=== PATIENT | female | born 1970 | race Caucasian/White ===

== ENCOUNTER 2017-01-06 03:26 | Observation (INO) | payer OTHER, MEDICAID ==
[2017-01-06] MEDS ORDERED: Sodium Chloride 0.9% 10 ML Syringe FLUSH PRN (03:37)
[2017-01-06] MEDS ORDERED: Sodium Chloride 0.9% 2.5 ML Syringe FLUSH PRN (03:37)
[2017-01-06] MEDS ORDERED: Sodium Chloride 0.9% 1,000 ML IV ONE (03:37)
[2017-01-06] MEDS ORDERED: Aspirin 81 MG Tab.Chew PO ONE (03:37)
--- NOTE | 2017-01-06 03:44 | EDM.PDOC ---
ED HPI GENERAL MEDICAL PROBLEM - General Chief Complaint: Chest Pain Stated Complaint: IRREGULAR HEARTBEAT Time Seen by Provider: 01/06/17 03:30 - History of Present Illness INITIAL COMMENTS - FREE TEXT/NARRATIVE: HISTORY AND PHYSICAL: History of present illness: The patient is a 46-year-old female who presents after awakening from sleep with a marie or like sensation in her anterior chest wall and palpitations and feeling like "she just ran a long race". This occurred at 2 AM, an hour and a half ago, and has improved. Patient says that the pain/pressure in her chest and bilateral and does go up to bilateral neck and left shoulder does not radiate down her arm or up into her jaw. It is not associated with shortness of breath diaphoresis nausea or vomiting. Patient says she had a normal day earlier without any upper respiratory symptoms chest pain abdominal pain she ate her normal meals. Patient has no significant history of cardiac pulmonary disease and she is adopted and really knows nothing about the health history of her biologic family. Patient does not smoke drink or do any drugs. Patient does have a history of anxiety in the past but has not taken medications for that in over 2 years. Patient does not recollect a caffeinated products. She has no leg pain or swelling and she did not take any medications prior to coming here. Patient ate normally earlier and has no history of food intolerance. She rates the pressure across her chest as a 4/10 currently. When asked if she is experiencing the palpitations she says that they have stopped. Patient tells me that she had a total hysterectomy in her 30s. Review of systems: As per history of present illness and below otherwise all systems reviewed and negative. Past medical history: As per history of present illness and as reviewed below otherwise noncontributory. Surgical history: As per history of present illness and as reviewed below otherwise noncontributory. Social history: No reported history of drug or alcohol abuse. Family history: As per history of present illness and as reviewed below otherwise noncontributory. Physical exam: Gen.: Well-developed well-nourished female who is nontoxic and speaking clearly and easily in the ED. Vital signs have been noted by me. HEENT: Atraumatic, normocephalic, negative for conjunctival pallor or scleral icterus, mucous membranes tacky, throat clear, neck supple, nontender, trachea midline. Lungs: Clear to auscultation, breath sounds equal bilaterally, chest nontender. No worker breathing or sensory muscle use stridor or wheezing Heart: S1S2, regular rate and rhythm no overt murmurs Abdomen: Soft, nondistended, nontender. Negative for masses or hepatosplenomegaly. NABS Pelvis: Deferred Genitourinary: Deferred. Rectal: Deferred. Extremities: Atraumatic, negative for cords or calf pain. Neurovascular unremarkable. No pedal edema or leg asymmetry Neuro: Awake, alert, oriented. Cranial nerves II through XII unremarkable. Cerebellum unremarkable. Motor and sensory unremarkable throughout. Exam nonfocal. Skin: No diaphoresis normal turgor no overt rashes or lesions grossly seen Diagnostics: EKG chest x-ray CBC CMP troponin INR and d-dimer Therapeutics: IV O2 monitor IV fluids nitroglycerin sublingual aspirin Nitropaste morphine After 3 sublingual nitroglycerin the chest discomfort/pressure is now at 2/10 and she says it is intermittent. We will place Nitropaste given a dose of morphine. We will continue to monitor the testing results. Patient states that her chest pressure has dissipated and it only occasionally resurfaces. We discussed, as well as the patient discussing with nursing, some increased stressors the patient has been experiencing lately and she thinks that anxiety may be resurfacing. She states she has an appointment tomorrow to see a physician about getting back on some medication for anxiety. I did discuss with her all testing results and the need for an observation admission. She is agreeable to do that Impression: Chest pain Definitive disposition and diagnosis as appropriate pending reevaluation and review of above. chest Pain Score (Numeric/FACES): 5 - Related Data Allergies Allergy/AdvReac Type Severity Reaction Status Date / Time levofloxacin [From Levaquin] Allergy Tachycardia Verified 01/06/17 03:30 Tetracyclines Allergy Hives Verified 01/06/17 03:30 Home Meds: Home Meds . 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: 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 History: Reports: Other (See Below) Other 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 History: hx: fracturing clavicle Neurological History: Reports: None Psychiatric History: Reports: Anxiety, Depression Endocrine/Metabolic History: Reports: None Hematologic History: Reports: None Immunologic History: Reports: None Oncologic (Cancer) History: Reports: None Dermatologic History: Reports: None - Infectious Disease History Infectious Disease History: Reports: Chicken Pox, Measles, Mumps Other Infectious Disease History: childhood - Past Surgical History Neurological Surgical History: Reports: Other (See Below) 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 Surgical History: Reports: Other (See Below) Social & Family History - Family History Family Medical History: Unobtainable Other HEENT Family History: Pt is adopted. - Tobacco Use Smoking Status *Q: Never Smoker Second Hand Smoke Exposure: No - Caffeine Use Caffeine Use: Reports: Coffee - Alcohol Use Days Per Week of Alcohol Use: 0 - Recreational Drug Use Recreational Drug Use: No Drug Use in Last 12 Months: No Recreational Drug Type: Reports: Cocaine ED ROS GENERAL - Review of Systems Review Of Systems: ROS reveals no pertinent complaints other than HPI. (See dictation) ED EXAM, GENERAL - Physical Exam Exam: See Below (See dictation) Course - Vital Signs Last Recorded V/S: Last Vital Signs Temp 36.6 C 01/06/17 03:26 Pulse 69 01/06/17 04:30 Resp 18 01/06/17 04:30 BP 110/67 01/06/17 04:30 Pulse Ox 96 01/06/17 04:30 - Orders/Labs/Meds Orders: Active Orders 24 hr Category Date Time Status Cardiac Monitoring [RC] . DIRECTED Care 01/06/17 03:37 Active Oxygen Therapy, ED [RC] ASDIRECTED Care 01/06/17 03:37 Active Pulse Oximetry [RC] ASDIRECTED Care 01/06/17 03:37 Active Chest 1V Frontal [CR] Stat Exams 01/06/17 03:37 Taken LORazepam [Ativan] Med 01/06/17 04:32 Once 1 mg PO ONETIME ONE Sodium Chloride 0.9% [Normal Saline] 1,000 ml Med 01/06/17 03:37 Active IV STAT Sodium Chloride 0.9% [Saline Flush] Med 01/06/17 03:37 Active 10 ml FLUSH ASDIRECTED PRN Sodium Chloride 0.9% [Saline Flush] Med 01/06/17 03:37 Active 2.5 ml FLUSH ASDIRECTED PRN Saline Lock Insert [OM.PC] Stat Oth 01/06/17 03:37 Ordered Medication Orders Sodium Chloride (Normal Saline) 1,000 mls @ 999 mls/hr IV STAT ONE Stop: 01/06/17 04:37 Last Admin: 01/06/17 03:49 Dose: 999 mls/hr Sodium Chloride (Saline Flush) 10 ml FLUSH ASDIRECTED PRN PRN Reason: Keep Vein Open Sodium Chloride (Saline Flush) 2.5 ml FLUSH ASDIRECTED PRN PRN Reason: Keep Vein Open Labs: Laboratory Tests 01/06/17 01/06/17 01/06/17 Range/Units 03:30 03:30 03:49 WBC 8.57 (4.0-11.0) K/uL RBC 5.08 (4.30-5.90) M/uL Hgb 15.7 (12.0-16.0) g/dL Hct 43.8 (36.0-46.0) % MCV 86.2 (80.0-98.0) fL MCH 30.9 (27.0-32.0) pg MCHC 35.8 (31.0-37.0) g/dL RDW Std Deviation 39.4 (28.0-62.0) fl RDW Coeff of Jose Luis 13 (11.0-15.0) % Plt Count 192 (150-400) K/uL MPV 9.70 (7.40-12.00) fL Neut % (Auto) 39.9 L (48.0-80.0) % Lymph % (Auto) 48.9 H (16.0-40.0) % [place] % (Auto) 6.8 (0.0-15.0) % Eos % (Auto) 3.9 (0.0-7.0) % Baso % (Auto) 0.5 (0.0-1.5) % Neut # (Auto) 3.4 (1.4-5.7) K/uL Lymph # (Auto) 4.2 H (0.6-2.4) K/uL [place] # (Auto) 0.6 (0.0-0.8) K/uL Eos # (Auto) 0.3 (0.0-0.7) K/uL Baso # (Auto) 0.0 (0.0-0.1) K/uL Nucleated RBC % 0.0 /100WBC Nucleated RBCs # 0 K/uL INR 0.98 (0.86-1.11) D-Dimer, Quantitative < 0.19 (0.0-0.52) mg/LFEU Sodium 139 (136-146) mmol/L Potassium 4.2 (3.5-5.1) mmol/L Chloride 109 (98-110) mmol/L Carbon Dioxide 19 L (21-31) mmol/L BUN 27 H (6.0-23.0) mg/dL Creatinine 0.9 (0.6-1.5) mg/dL Est Cr Clr Drug Dosing 63.24 mL/min Estimated GFR (MDRD) > 60.0 ml/min Glucose 102 (60-110) mg/dL Calcium 9.6 (8.8-10.8) mg/dL Total Bilirubin 0.4 (0.1-1.5) mg/dL AST 20 (5-40) IU/L ALT 16 (8-54) IU/L Alkaline Phosphatase 99 (40-150) Troponin I < 0.10 (0.0-0.29) NG/ML Total Protein 7.3 (6.0-8.0) g/dL Albumin 4.1 (3.5-5.0) g/dL Globulin 3.2 (2.0-3.5) g/dL Albumin/Globulin Ratio 1.3 (1.3-2.8) Meds: Medications Generic Name Dose Route Start Last Admin Trade Name Freq PRN Reason Stop Dose Admin Sodium Chloride 1,000 mls @ 999 mls/hr 01/06/17 03:37 01/06/17 03:49 Normal Saline IV 01/06/17 04:37 999 mls/hr STAT ONE Administration Sodium Chloride 10 ml 01/06/17 03:37 Saline Flush FLUSH ASDIRECTED PRN Keep Vein Open Sodium Chloride 2.5 ml 01/06/17 03:37 Saline Flush FLUSH ASDIRECTED PRN Keep Vein Open Discontinued Medications Generic Name Dose Route Start Last Admin Trade Name Freq PRN Reason Stop Dose Admin Aspirin 324 mg 01/06/17 03:37 01/06/17 03:48 Aspirin PO 01/06/17 03:38 324 mg ONETIME ONE Administration Morphine Sulfate 2 mg 01/06/17 04:04 01/06/17 04:09 Morphine IVPUSH 01/06/17 04:05 2 mg ONETIME ONE Administration Nitroglycerin 0.4 mg 01/06/17 03:45 01/06/17 03:58 Nitrostat SL 01/06/17 03:56 0.4 mg Q5M JOSE L Administration Nitroglycerin 0.5 gm 01/06/17 04:04 01/06/17 04:08 Nitro-Bid 2% TOP 01/06/17 04:05 0.5 gm ONETIME ONE Administration Departure - Departure Time of Disposition: 04:34 Disposition: Refer to Observation Condition: Good Clinical Impression: Chest pain Qualifiers: Chest pain type: unspecified Qualified Code(s): R07.9 - Chest pain, unspecified - Discharge Information Forms: ED Department Discharge - My Orders Last 24 Hours: My Active Orders 01/06/17 03:37 Cardiac Monitoring [RC] . DIRECTED Oxygen Therapy, ED [RC] ASDIRECTED Pulse Oximetry [RC] ASDIRECTED Chest 1V Frontal [CR] Stat Sodium Chloride 0.9% [Normal Saline] 1,000 ml IV STAT Sodium Chloride 0.9% [Saline Flush] 10 ml FLUSH ASDIRECTED PRN Sodium Chloride 0.9% [Saline Flush] 2.5 ml FLUSH ASDIRECTED PRN Saline Lock Insert [OM.PC] Stat 01/06/17 04:32 LORazepam [Ativan] 1 mg PO ONETIME ONE - Assessment/Plan Last 24 Hours: My Active Orders 01/06/17 03:37 Cardiac Monitoring [RC] . DIRECTED Oxygen Therapy, ED [RC] ASDIRECTED Pulse Oximetry [RC] ASDIRECTED Chest 1V Frontal [CR] Stat Sodium Chloride 0.9% [Normal Saline] 1,000 ml IV STAT Sodium Chloride 0.9% [Saline Flush] 10 ml FLUSH ASDIRECTED PRN Sodium Chloride 0.9% [Saline Flush] 2.5 ml FLUSH ASDIRECTED PRN Saline Lock Insert [OM.PC] Stat 01/06/17 04:32 LORazepam [Ativan] 1 mg PO ONETIME ONE
[2017-01-06] MEDS: Nitroglycerin 0.4 MG Tab.SL SL SCH ×3 (03:48→03:58)
[2017-01-06] MEDS ORDERED: Morphine 2 MG/ML Syringe IVPUSH ONE (04:04)
[2017-01-06] MEDS ORDERED: Nitroglycerin 2% Oint 1 GM UD Packet TOP ONE (04:04)
[2017-01-06 04:05] LABS: CHLORIDE,CL 109 mmol/L (98-110); SODIUM,NA 139 mmol/L (136-146)
[2017-01-06] MEDS ORDERED: LORazepam 1 MG Tab PO ONE (04:32)
[2017-01-06] MEDS ORDERED: LORazepam 1 MG Tab PO PRN (05:48)
[2017-01-06] MEDS ORDERED: Morphine 4 MG/ML Syringe IVPUSH PRN (05:48)
[2017-01-06] MEDS ORDERED: Ondansetron 4 MG/2 ML SDV IVPUSH PRN (05:48)
[2017-01-06] MEDS ORDERED: Acetaminophen 500 MG Tab PO PRN (06:35)
[2017-01-06] MEDS ORDERED: Aspirin 81 MG Tab.Chew PO SCH (09:00)
[2017-01-06 09:46] VITALS: BP 109/55
[2017-01-06] MEDS ORDERED: Ibuprofen 400 MG Tab PO PRN (10:45)
--- NOTE | 2017-01-06 11:32 | CR ---
EXAM DATE: 01/06/17 PATIENT'S AGE: 46 Patient: LYNETTE MATHIS Facility: [place], [place] Site . Site : [id number] Study: XRay Chest [id number] 4:14:31 AM Ordering Physician: Tim Diaz Final Report: INDICATION: Chest pain. TECHNIQUE: Chest radiograph 1 view COMPARISON: 02/06/2016. FINDINGS: Cardiovascular and mediastinum: The heart silhouette is normal in size and morphology. The mediastinum is normal in appearance. Lungs and pleural spaces: Both lungs are unremarkable in appearance. No sign of pleural effusion seen. No pneumothorax is identified. Bones and soft tissues: No significant findings. IMPRESSION: 1. No acute cardiopulmonary disease is seen. Dictated by King Mitchell MD @ 01/06/2017 4:49:32 AM Dictated by: King Mitchell MD @ 01/06/2017 04:49:40 (Electronic Signature) Report Signed by Proxy. [facility] NETWORK[facility]
--- NOTE | 2017-01-06 15:57 | PCM.HP ---
H&P History of Present Illness - General Date of Service: 01/06/17 Admit Problem/Dx: Admission Diagnosis/Problem Admission Diagnosis/Problem Chest pain Source of Information: Patient History Limitations: Reports: No Limitations - History of Present Illness Initial Comments - Free Text/Narative: 46-year-old female with a history of anxiety and depression who presented to the emergency department last night complaining of chest pain onset 2 AM this morning. As per the patient, who told me that she was sleeping when she woke up feeling a tightness in her chest that was radiating up into her left side of her neck. She's been worked up in the ER found to have a normal EKG and normal troponin level. She was admitted for observation. Talking to the patient the morning, she denies any reoccurrence of the chest pain. She denies any numbness or tingling. She denies any palpitations. Denies any fevers or chills. She does tell me that she has an appointment set up with her primary care provider for a refill on her antidepressants. She does tell me that her social situation has caused her a great deal of distress recently. She does not have any known cardiac history. chest Pain Score (Numeric/FACES): 2 - Related Data Allergies/Adverse Reactions: Allergies Allergy/AdvReac Type Severity Reaction Status Date / Time levofloxacin [From Levaquin] Allergy Tachycardia Verified 01/06/17 03:30 Tetracyclines Allergy Hives Verified 01/06/17 03:30 Home Medications: Home Meds Aspirin 81 mg PO DAILY 30 Days #30 tab.chew 01/06/17 [Rx] Past Medical History - Past Health History Medical/Surgical History: Denies Medical/Surgical History HEENT History: Reports: Other (See Below) Other HEENT History: Poor hearing on Right Cardiovascular History: Reports: None Respiratory History: Reports: None Other Respiratory History: hx: Smoking Gastrointestinal History: Reports: None Genitourinary History: Reports: None [employer]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: 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 History: Reports: Other (See Below) Other 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 History: hx: fracturing clavicle Neurological History: Reports: None Psychiatric History: Reports: Anxiety, Depression Endocrine/Metabolic History: Reports: None Hematologic History: Reports: None Immunologic History: Reports: None Oncologic (Cancer) History: Reports: None Dermatologic History: Reports: None - Infectious Disease History Infectious Disease History: Reports: Chicken Pox, Measles, Mumps Other Infectious Disease History: childhood - Past Surgical History Head Surgeries/Procedures: Reports: None Neurological Surgical History: Reports: Other (See Below) 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 Surgical History: Reports: Other (See Below) Social & Family History - Family History Family Medical History: Unobtainable Other HEENT Family History: Pt is adopted. - Tobacco Use Smoking Status *Q: Never Smoker Second Hand Smoke Exposure: No - Caffeine Use Caffeine Use: Reports: Coffee - Alcohol Use Days Per Week of Alcohol Use: 0 - Recreational Drug Use Recreational Drug Use: No Drug Use in Last 12 Months: No Recreational Drug Type: Reports: Cocaine H&P Review of Systems - Review of Systems: Review Of Systems: See Below General: Reports: No Symptoms HEENT: Reports: No Symptoms Pulmonary: Denies: Shortness of Breath, Wheezing Cardiovascular: Reports: Other (See history of present illness) Gastrointestinal: Reports: No Symptoms Genitourinary: Reports: No Symptoms 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: Reports: No Symptoms Skin: Reports: No Symptoms Psychiatric: Reports: No Symptoms Neurological: Reports: No Symptoms Hematologic/Lymphatic: Reports: No Symptoms Immunologic: Reports: No Symptoms Exam - Exam Exam: See Below - Vital Signs Vital Signs: Last Vital Signs Temp 36.8 C 01/06/17 09:00 Pulse 88 01/06/17 09:00 Resp 19 01/06/17 09:00 BP 109/55 L 01/06/17 09:00 Pulse Ox 97 01/06/17 09:00 Weight: 73.482 kg - Exam General: Alert, Oriented HEENT: Conjunctiva Clear, EACs Clear, EOMI Neck: Supple, Trachea Midline Lungs: Clear to Auscultation, Normal Respiratory Effort Cardiovascular: Regular Rate, Regular Rhythm, Normal S1, Normal S2 GI/Abdominal Exam: Normal Bowel Sounds, Soft, Non-Tender Back Exam: Normal Inspection. No: CVA Tenderness (L), CVA Tenderness (R) Extremities: Normal Inspection, Normal Range of Motion, Non-Tender, No Pedal Edema, Normal Capillary Refill Peripheral Pulses: 2+: Dorsalis Pedis (L), Dorsalis Pedis (R) Skin: Warm, Dry, Intact Neurological: Cranial Nerves Intact Neuro Extensive - Mental Status: Alert, Oriented x3 Neuro Extensive - Motor, Sensory, Reflexes: CN II-XII Intact Psychiatric: Alert, Normal Affect, Normal Mood - Patient Data Lab Results Last 24 hrs: Laboratory Results - last 24 hr 01/06/17 01/06/17 Range/Units 09:25 15:19 Troponin I < 0.10 < 0.10 (0.0-0.29) NG/ML Result Diagrams: 01/06/17 03:30 01/06/17 03:30 *Q Meaningful Use (ADM) - VTE *Q VTE Criteria *Q: - Stroke *Q Stroke Criteria *Q: - AMI *Q AMI Criteria *Q: Problem List Initiated/Reviewed/Updated: Yes Orders Last 24hrs: Active Orders 24 hr Category Date Time Status Ready for Discharge [RC] PER UNIT ROUTINE Care 01/06/17 15:46 Active Telemetry Monitoring [Cardiac Monitoring] [RC] Q8H Care 01/06/17 05:22 Active Heart Healthy Diet [DIET] Diet 01/06/17 Breakfast Active Acetaminophen [Tylenol Extra Strength] Med 01/06/17 06:35 Active 500 mg PO Q4H PRN Aspirin Med 01/06/17 09:00 Active 81 mg PO DAILY Ibuprofen [Motrin] Med 01/06/17 10:45 Active 400 mg PO Q4H PRN LORazepam [Ativan] Med 01/06/17 05:48 Active 1 mg PO Q6H PRN Morphine Med 01/06/17 05:48 Active 4 mg IVPUSH Q4H PRN Ondansetron [Zofran] Med 01/06/17 05:48 Active 4 mg IVPUSH Q4H PRN Medication Orders Acetaminophen (Tylenol Extra Strength) 500 mg PO Q4H PRN PRN Reason: Pain Last Admin: 01/06/17 07:29 Dose: 500 mg Aspirin (Aspirin) 81 mg PO DAILY JOSE L Last Admin: 01/06/17 08:13 Dose: Ibuprofen (Motrin) 400 mg PO Q4H PRN PRN Reason: Headache Last Admin: 01/06/17 11:06 Dose: 400 mg Lorazepam (Ativan) 1 mg PO Q6H PRN PRN Reason: Anxiety Morphine Sulfate (Morphine) 4 mg IVPUSH Q4H PRN PRN Reason: Pain Ondansetron HCl (Zofran) 4 mg IVPUSH Q4H PRN PRN Reason: Nausea/Vomiting Sodium Chloride (Saline Flush) 10 ml FLUSH ASDIRECTED PRN PRN Reason: Keep Vein Open Sodium Chloride (Saline Flush) 2.5 ml FLUSH ASDIRECTED PRN PRN Reason: Keep Vein Open Assessment/Plan Comment:: Assessment: #1. ACS rule out secondary to chest pain #2. History of depression, anxiety Plan: Admit to the floor for observation Cardiac telemetry Vital signs per floor routine Troponin 2 every 6 hours initial troponin was negative I do feel that this is likely anxiety related rather than a cardiac etiology. Nonetheless associated to be ruled out. At this point in her chest pain has resolved. Anticipate discharge today if labs are unremarkable. She can follow up with primary care provider in regards to her anxiety and depression. At this point in time she is not suicidal or homicidal. Discharge summary: Discharge diagnosis: #1. ACS ruled out #2. Chest pain that is likely secondary to a psychiatric etiology #3. History of depression, anxiety Hospital course: Labs indicate a negative troponin 3. This patient did not have any bouts of chest pain while admitted. There were no abnormalities noted on telemetry. Patient was advised to follow-up with primary care provider. Patient was sent home on 81 mg aspirin daily. At the time of discharge, the patient denied any chest pain, palpitations, shortness of breath. She had no complaints. She is advised to return to seek medical attention if she expresses any chest pain, palpitations, shortness of breath again. Patient agrees to the plan. Medications: Aspirin 81 mg by mouth daily #30 tabs Disposition: To home Follow up with Dr. Belle within one week
== END 2017-01-06 17:50 | disposition home or self-care (01) ==
LOC: MW.ED 03:26 → MW.MS 04:35
PROVIDERS: ADMIT Family Medicine; ATTEND Family Medicine
DX: R07.89 Other chest pain (principal); F41.9 Anxiety disorder, unspecified; F32.9 Major depressive disorder, single episode, unspecified; Z88.1 Allergy status to other antibiotic agents; Z88.8 Allergy status to other drugs, medicaments and biological substances; Z79.82 Long term (current) use of aspirin; Z87.891 Personal history of nicotine dependence
CPT/HCPCS: 71010; 80053; 83735; 84443; 84484; 85025; 85379; 85610; 93005; 96361; 96374; 99285; A9270; G0378; J2270; J7040; 99284

== ENCOUNTER 2017-02-05 11:17 | Day surgery (SDC) | payer MEDICAID, OTHER ==
[2017-02-05] MEDS ORDERED: Betamethasone Acetate/Betamethasone Sod Phosphate 30 MG/5 ML MDV ONE (11:45)
[2017-02-05] MEDS ORDERED: Lidocaine 2% 5 ML SDV ONE (11:46)
[2017-02-05] MEDS ORDERED: Ropivacaine 0.5% 5 MG/ML 30 ML SDV ONE (11:46)
[2017-02-05] MEDS ORDERED: Iopamidol 408 MG/ML 50 ML SDV ONE (11:46)
--- NOTE | 2017-02-05 17:50 | OR ---
SURGEON: Lillian Rossi D.O. DATE OF PROCEDURE: 02/05/2017 OR STAFF PRESENT: 1. Sy Palacios RN. 2. Dominguez Moore RN. 3. Kalin Gutierrez RN. WOUND CLASSIFICATION: I. PREOPERATIVE DIAGNOSES: 1. Failed back surgery syndrome. 2. Chronic low back pain. POSTOPERATIVE DIAGNOSES: 1. Failed back surgery syndrome. 2. Chronic low back pain. PROCEDURE PERFORMED: 1. Caudal epidural steroid injection. 2. Fluoroscopic guidance for needle placement. 3. Local with oral Valium for sedation. SCREENING QUESTIONS: The patient answered "no" to all of the following questions: 1. Are you allergic to latex? 2. Do you have a bleeding disorder? 3. Do you have any current local or systemic infections? 4. Are you taking any anti-inflammatories or blood thinners? 5. Do you have any joint replacements, heart valve replacements, or a pacemaker? DESCRIPTION OF PROCEDURE: The patient had the procedure thoroughly explained including all possible risks, benefits and alternatives. Consent was signed in my clinic indicating understanding and willingness to proceed. The patient presented to [facility] and was escorted to the dressing room to disrobe and change into a hospital gown. Preoperative vital signs were taken and stable. The patient reported that Valium was taken prior to the procedure. The patient was brought back to the procedure room and placed in the prone position on the procedure room table. A pillow was placed under the hips in order to flatten the lumbar lordosis. The back was prepped with ChloraPrep and sterilely draped. All personnel in the operating room were dressed in appropriate attire including surgical scrubs, head and shoe covers. This was to ensure sterility while in the treatment room. During the time fluoroscopy was in use, all personnel in the operating room wore lead riley with thyroid collars. Sterile technique was used throughout the procedure. The patient was awake and conversant throughout the procedure. There was no evidence of infection at the site of needle insertion. Skeletal landmarks were identified under fluoroscopy for the caudal epidural. Skin was anesthetized with 2% lidocaine with a sterile 27-gauge 1.5 inch needle. Then a 20-gauge Tuohy epidural needle was placed in the epidural space with loss of resistance technique under fluoroscopic guidance. No heme, cerebrospinal fluid, or paresthesias were noted. Isovue-200 contrast dye was injected in 0.2 cubic centimeter increments and seen to outline the epidural space in both AP and lateral views. There was no intravascular flow pattern observed under live fluoroscopy. Then 12 milligrams of Celestone and then local was slowly injected after negative aspiration. The patient tolerated the procedure well. Vital signs were stable during and after the procedure. The staff escorted the patient to the recovery area and the patient was released in stable condition after a brief stay in the recovery room monitored by the nurse. The patient was given both oral and written discharge and follow up instructions with recommendation to follow up given in 3 weeks. The patient voiced understanding including understanding of those signs and symptoms that would require emergency care. The patient knows how to contact the office if there are any additional problems or questions in the meantime. PREOPERATIVE PAIN: 5+/10. POSTOPERATIVE PAIN: 2/10. FOLLOWUP: Follow up in the pain clinic in 3 weeks. CONOR / MAURO /[id number] LIU
== END 2017-02-05 13:11 ==
LOC: MW.SDS 11:17
PROVIDERS: ATTEND Anesthesiology
DX: M54.5 Low back pain (principal); G89.29 Other chronic pain; M96.1 Postlaminectomy syndrome, not elsewhere classified; F41.9 Anxiety disorder, unspecified; F32.9 Major depressive disorder, single episode, unspecified; K21.9 Gastro-esophageal reflux disease without esophagitis; G47.00 Insomnia, unspecified; K58.9 Irritable bowel syndrome, unspecified; E66.3 Overweight; Z88.8 Allergy status to other drugs, medicaments and biological substances; Z79.1 Long term (current) use of non-steroidal anti-inflammatories (NSAID); Z79.899 Other long term (current) drug therapy; Z90.89 Acquired absence of other organs
CPT/HCPCS: 62323; J0702; J2795; Q9966

== ENCOUNTER 2017-05-10 08:55 | Observation (INO) | payer OTHER, MEDICAID ==
[2017-05-10] MEDS ORDERED: Sodium Chloride 0.9% 2.5 ML Syringe FLUSH PRN (08:59)
[2017-05-10] MEDS ORDERED: Sodium Chloride 0.9% 10 ML Syringe FLUSH PRN (08:59)
[2017-05-10] MEDS ORDERED: Aspirin 81 MG Tab.Chew PO ONE (08:59)
[2017-05-10] MEDS ORDERED: Sodium Chloride 0.9% 1,000 ML IV SCH (09:00)
[2017-05-10] MEDS ORDERED: Nitroglycerin 2% Oint 1 GM UD Packet TOP ONE (09:01)
--- NOTE | 2017-05-10 09:01 | EDM.PDOC ---
ED HPI GENERAL MEDICAL PROBLEM - General Chief Complaint: Chest Pain Stated Complaint: CHEST PAIN Time Seen by Provider: 05/10/17 08:56 - History of Present Illness INITIAL COMMENTS - FREE TEXT/NARRATIVE: HISTORY AND PHYSICAL: History of present illness: Patient 47-year-old white female presents with concern of chest pain she describes as a tightness is no associated shortness of breath diaphoresis nausea vomiting or palpitations he denies history of hypercholesterolemia she denies hypertension she denies prior [place] or CVA she denies diabetes. She states has been present off and on through the night she now just history of anxiety but states has been well controlled over the last several months Review of systems: As per history of present illness and below otherwise all systems reviewed and negative. Past medical history: As per history of present illness and as reviewed below otherwise noncontributory. Surgical history: As per history of present illness and as reviewed below otherwise noncontributory. Social history: No reported history of drug or alcohol abuse. Family history: As per history of present illness and as reviewed below otherwise noncontributory. Physical exam: HEENT: Atraumatic, normocephalic, pupils reactive, negative for conjunctival pallor or scleral icterus, mucous membranes moist, throat clear, neck supple, nontender, trachea midline. Lungs: Clear to auscultation, breath sounds equal bilaterally, chest nontender. Heart: S1S2, regular, negative for clicks, rubs, or JVD. Abdomen: Soft, nondistended, nontender. Negative for masses or hepatosplenomegaly. Negative for costovertebral tenderness. Pelvis: Stable nontender. Genitourinary: Deferred. Rectal: Deferred. Extremities: Atraumatic, negative for cords or calf pain. Neurovascular unremarkable. Neuro: Awake, alert, oriented. Cranial nerves II through XII unremarkable. Cerebellum unremarkable. Motor and sensory unremarkable throughout. Exam nonfocal. Diagnostics: CBC CMP troponin PT/INR chest x-ray EKG Therapeutics: IV O2 monitor aspirin 324 mg Nitropaste 1 inch Impression: # 1 chest pain Definitive disposition and diagnosis as appropriate pending reevaluation and review of above. left chest pain Pain Score (Numeric/FACES): 4 - Related Data Allergies Allergy/AdvReac Type Severity Reaction Status Date / Time levofloxacin [From Levaquin] Allergy Tachycardia Verified 01/06/17 03:30 Tetracyclines Allergy Hives Verified 01/06/17 03:30 Home Meds: Home Meds LORazepam [LORazepam] 1 mg PO DAILY 05/10/17 [History] Sertraline [Zoloft] 50 mg PO DAILY 05/10/17 [History] Past Medical History - Past Health History Medical/Surgical History: Denies Medical/Surgical History HEENT History: Reports: Other (See Below) Other HEENT History: Poor hearing on Right Cardiovascular History: Reports: None Respiratory History: Reports: None Other Respiratory History: hx: Smoking Gastrointestinal History: Reports: None 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: 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 History: Reports: Other (See Below) Other 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 History: hx: fracturing clavicle Neurological History: Reports: None Psychiatric History: Reports: Anxiety, Depression Endocrine/Metabolic History: Reports: None Hematologic History: Reports: None Immunologic History: Reports: None Oncologic (Cancer) History: Reports: None Dermatologic History: Reports: None - Infectious Disease History Infectious Disease History: Reports: Chicken Pox, Measles, Mumps Other Infectious Disease History: childhood - Past Surgical History Head Surgeries/Procedures: Reports: None Neurological Surgical History: Reports: Other (See Below) 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 Surgical History: Reports: Other (See Below) Social & Family History - Family History Family Medical History: Unobtainable Other HEENT Family History: Pt is adopted. - Tobacco Use Smoking Status *Q: Never Smoker Second Hand Smoke Exposure: No - Caffeine Use Caffeine Use: Reports: Coffee - Alcohol Use Days Per Week of Alcohol Use: 0 - Recreational Drug Use Recreational Drug Use: No Drug Use in Last 12 Months: No Recreational Drug Type: Reports: Cocaine ED ROS GENERAL - Review of Systems Review Of Systems: ROS reveals no pertinent complaints other than HPI. ED EXAM, GENERAL - Physical Exam Exam: See Below (See dictation) Course - Vital Signs Last Recorded V/S: Last Vital Signs Temp 36.8 C 05/10/17 08:56 Pulse 773 H 05/10/17 08:56 Resp 18 05/10/17 08:56 BP 149/89 H 05/10/17 08:56 Pulse Ox 99 05/10/17 08:56 - Orders/Labs/Meds Orders: Active Orders 24 hr Category Date Time Status Cardiac Monitoring [RC] . DIRECTED Care 05/10/17 08:58 Active EKG Documentation Completion [RC] STAT Care 05/10/17 08:58 Active Oxygen Therapy, ED [RC] ASDIRECTED Care 05/10/17 08:58 Active Chest 1V Frontal [CR] Stat Exams 05/10/17 08:59 Taken Sodium Chloride 0.9% [Normal Saline] 1,000 ml Med 05/10/17 09:00 Active IV STAT Sodium Chloride 0.9% [Saline Flush] Med 05/10/17 08:59 Active 10 ml FLUSH ASDIRECTED PRN Sodium Chloride 0.9% [Saline Flush] Med 05/10/17 08:59 Active 2.5 ml FLUSH ASDIRECTED PRN Saline Lock Insert [OM.PC] Stat Oth 05/10/17 08:58 Ordered Medication Orders Sodium Chloride (Normal Saline) 1,000 mls @ 125 mls/hr IV STAT JOSE L Last Admin: 05/10/17 09:14 Dose: 125 mls/hr Sodium Chloride (Saline Flush) 10 ml FLUSH ASDIRECTED PRN PRN Reason: Keep Vein Open Sodium Chloride (Saline Flush) 2.5 ml FLUSH ASDIRECTED PRN PRN Reason: Keep Vein Open Labs: Laboratory Tests 05/10/17 05/10/17 05/10/17 Range/Units 09:00 09:00 09:00 WBC 4.87 (4.0-11.0) K/uL RBC 4.89 (4.30-5.90) M/uL Hgb 14.6 (12.0-16.0) g/dL Hct 42.5 (36.0-46.0) % MCV 86.9 (80.0-98.0) fL MCH 29.9 (27.0-32.0) pg MCHC 34.4 (31.0-37.0) g/dL RDW Std Deviation 41.6 (28.0-62.0) fl RDW Coeff of Jose Luis 13 (11.0-15.0) % Plt Count 194 (150-400) K/uL MPV 9.30 (7.40-12.00) fL Neut % (Auto) 50.8 (48.0-80.0) % Lymph % (Auto) 35.9 (16.0-40.0) % [place] % (Auto) 7.6 (0.0-15.0) % Eos % (Auto) 4.9 (0.0-7.0) % Baso % (Auto) 0.8 (0.0-1.5) % Neut # (Auto) 2.5 (1.4-5.7) K/uL Lymph # (Auto) 1.8 (0.6-2.4) K/uL [place] # (Auto) 0.4 (0.0-0.8) K/uL Eos # (Auto) 0.2 (0.0-0.7) K/uL Baso # (Auto) 0.0 (0.0-0.1) K/uL Nucleated RBC % 0.0 /100WBC Nucleated RBCs # 0 K/uL INR 1.04 Sodium 139 (136-145) mmol/L Potassium 3.9 (3.5-5.1) mmol/L Chloride 105 (98-107) mmol/L Carbon Dioxide 25.9 (21.0-32.0) mmol/L BUN 18 (7.0-18.0) mg/dL Creatinine 0.9 (0.6-1.0) mg/dL Est Cr Clr Drug Dosing 62.55 mL/min Estimated GFR (MDRD) > 60.0 ml/min Glucose 99 (74-106) mg/dL Calcium 9.1 (8.5-10.1) mg/dL Total Bilirubin 0.8 (0.2-1.0) mg/dL AST 14 L (15-37) IU/L ALT 15 (14-63) IU/L Alkaline Phosphatase 82 (46-116) U/L Troponin I < 0.050 (0.000-0.056) ng/mL Total Protein 7.1 (6.4-8.2) g/dL Albumin 3.9 (3.4-5.0) g/dL Globulin 3.2 (2.0-3.5) g/dL Albumin/Globulin Ratio 1.2 L (1.3-2.8) Meds: Medications Generic Name Dose Route Start Last Admin Trade Name Freq PRN Reason Stop Dose Admin Sodium Chloride 1,000 mls @ 125 mls/hr 05/10/17 09:00 05/10/17 09:14 Normal Saline IV 125 mls/hr STAT JOSE L Administration Sodium Chloride 10 ml 05/10/17 08:59 Saline Flush FLUSH ASDIRECTED PRN Keep Vein Open Sodium Chloride 2.5 ml 05/10/17 08:59 Saline Flush FLUSH ASDIRECTED PRN Keep Vein Open Discontinued Medications Generic Name Dose Route Start Last Admin Trade Name Tavares PRN Reason Stop Dose Admin Aspirin 324 mg 05/10/17 08:59 05/10/17 09:11 Aspirin PO 05/10/17 09:00 324 mg ONETIME ONE Administration Nitroglycerin 1 gm 05/10/17 09:01 05/10/17 09:12 Nitro-Bid 2% TOP 05/10/17 09:02 1 gm ONETIME ONE Administration Departure - Departure Time of Disposition: 10:24 Disposition: Refer to Observation Condition: Good Clinical Impression: Chest pain Qualifiers: Chest pain type: unspecified Qualified Code(s): R07.9 - Chest pain, unspecified - Discharge Information Forms: ED Department Discharge - My Orders Last 24 Hours: My Active Orders 05/10/17 08:58 Cardiac Monitoring [RC] . DIRECTED EKG Documentation Completion [RC] STAT Oxygen Therapy, ED [RC] ASDIRECTED Saline Lock Insert [OM.PC] Stat 05/10/17 08:59 Chest 1V Frontal [CR] Stat Sodium Chloride 0.9% [Saline Flush] 10 ml FLUSH ASDIRECTED PRN Sodium Chloride 0.9% [Saline Flush] 2.5 ml FLUSH ASDIRECTED PRN 05/10/17 09:00 Sodium Chloride 0.9% [Normal Saline] 1,000 ml IV STAT - Assessment/Plan Last 24 Hours: My Active Orders 05/10/17 08:58 Cardiac Monitoring [RC] . DIRECTED EKG Documentation Completion [RC] STAT Oxygen Therapy, ED [RC] ASDIRECTED Saline Lock Insert [OM.PC] Stat 05/10/17 08:59 Chest 1V Frontal [CR] Stat Sodium Chloride 0.9% [Saline Flush] 10 ml FLUSH ASDIRECTED PRN Sodium Chloride 0.9% [Saline Flush] 2.5 ml FLUSH ASDIRECTED PRN 05/10/17 09:00 Sodium Chloride 0.9% [Normal Saline] 1,000 ml IV STAT
[2017-05-10 09:31] LABS: CHLORIDE,CL 105 mmol/L (98-107); SODIUM,NA 139 mmol/L (136-145)
--- NOTE | 2017-05-10 10:27 | PCM.HP ---
H&P History of Present Illness - General Date of Service: 05/10/17 Admit Problem/Dx: Admission Diagnosis/Problem Admission Diagnosis/Problem Chest pain Source of Information: Patient History Limitations: Reports: No Limitations - History of Present Illness Initial Comments - Free Text/Narative: 47-year-old female presenting to the emergency department with chief complaint of chest pain starting last evening at 8 PM with past medical history of depression and anxiety. Patient states that around 8 PM she started to have some sudden sharp stabbing pain in her left chest radiating into her left arm as well as neck and jaw. States that she did go to bed at this time but awoke with similar pain 6 times throughout the night. She woke up around 8 AM with the pain and went to the bathroom with nausea and vomiting and felt like she may have passed out. She had 2 episodes of vomiting. She denies any associated diaphoresis or shortness of breath. She does admit to having 2 episodes of diarrhea last evening and general upset stomach. She also reports a headache that started 2 days ago. Patient has history of anxiety/depression and takes Zoloft for this. She does have a prescription for lorazepam but states she has not taken it in quite some time as she does not feel anxious. Emergency department: CBC, INR, CMP, chest x-ray all unremarkable. Vital signs stable, troponin negative, EKG shows no sign of acute ischemic changes. There was some anterior T -wave inversions with normal sinus rhythm no comparison EKG. Primary care physician Dr. Belle, nurse practitioner Cj Rodrigez. Patient admitted for atypical chest pain. left chest pain Pain Score (Numeric/FACES): 4 - Related Data Allergies/Adverse Reactions: Allergies Allergy/AdvReac Type Severity Reaction Status Date / Time levofloxacin [From Levaquin] Allergy Tachycardia Verified 01/06/17 03:30 Tetracyclines Allergy Hives Verified 01/06/17 03:30 Home Medications: Home Meds LORazepam [LORazepam] 1 mg PO DAILY 05/10/17 [History] Sertraline [Zoloft] 50 mg PO DAILY 05/10/17 [History] Past Medical History - Past Health History Medical/Surgical History: Denies Medical/Surgical History HEENT History: Reports: Other (See Below) Other HEENT History: Poor hearing on Right Cardiovascular History: Reports: None Respiratory History: Reports: None Other Respiratory History: hx: Smoking Gastrointestinal History: Reports: None 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: 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 History: Reports: Other (See Below) Other 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 History: hx: fracturing clavicle Neurological History: Reports: None Psychiatric History: Reports: Anxiety, Depression Endocrine/Metabolic History: Reports: None Hematologic History: Reports: None Immunologic History: Reports: None Oncologic (Cancer) History: Reports: None Dermatologic History: Reports: None - Infectious Disease History Infectious Disease History: Reports: Chicken Pox, Measles, Mumps Other Infectious Disease History: childhood - Past Surgical History Head Surgeries/Procedures: Reports: None Neurological Surgical History: Reports: Other (See Below) 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 Surgical History: Reports: Other (See Below) Social & Family History - Family History Family Medical History: Unobtainable Other HEENT Family History: Pt is adopted. - Tobacco Use Smoking Status *Q: Never Smoker Second Hand Smoke Exposure: No - Caffeine Use Caffeine Use: Reports: Coffee - Alcohol Use Days Per Week of Alcohol Use: 0 - Recreational Drug Use Recreational Drug Use: No Drug Use in Last 12 Months: No Recreational Drug Type: Reports: Cocaine H&P Review of Systems - Review of Systems: Review Of Systems: See Below General: Denies: Fever, Chills, Malaise, Weakness, Fatigue, Diaphoresis HEENT: Reports: Headaches. Denies: Dysphasia, Sore Throat Pulmonary: Denies: Shortness of Breath, Cough, Sputum Cardiovascular: Reports: Chest Pain, Syncope. Denies: Palpitations, Edema, Blood Pressure Problem Gastrointestinal: Reports: Diarrhea, Nausea, Vomiting. Denies: Abdominal Pain, Black Stool, Bloody Stool Genitourinary: Denies: Dysuria, Hematuria 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: Denies: Neck Pain, Leg Pain Skin: Denies: Cyanosis Psychiatric: Denies: Confusion Neurological: Reports: Headache. Denies: Confusion, Dizziness Hematologic/Lymphatic: Denies: Anemia Immunologic: Denies: Anaphylaxis Exam - Exam Exam: See Below - Vital Signs Vital Signs: Last Vital Signs Temp 98.3 F 05/10/17 08:56 Pulse 773 H 05/10/17 08:56 Resp 18 05/10/17 08:56 BP 149/89 H 05/10/17 08:56 Pulse Ox 99 05/10/17 08:56 Weight: 70.307 kg - Exam Quality Assessment: DVT Prophylaxis General: Alert, Oriented, Cooperative HEENT: Conjunctiva Clear, EACs Clear, EOMI, Hearing Intact, Mucosa Moist & [place] , Nares Patent, Normal Nasal Septum, Posterior Pharynx Clear, PERRLA Neck: Supple, Trachea Midline, 2 Lungs: Clear to Auscultation, Normal Respiratory Effort Cardiovascular: Regular Rate, Regular Rhythm, Normal S1, Normal S2 GI/Abdominal Exam: Normal Bowel Sounds, Soft, Non-Tender, No Organomegaly, No Distention (Female) Exam: Deferred Rectal (Female) Exam: Deferred Back Exam: Normal Inspection, Full Range of Motion, NT Extremities: Normal Inspection, Non-Tender, No Pedal Edema, Normal Capillary Refill Peripheral Pulses: 2+: Radial (L), Radial (R), Posterior Tibial (L), Posterior Tibial (R), Dorsalis Pedis (L), Dorsalis Pedis (R) Skin: Warm, Dry, Intact Neurological: Cranial Nerves Intact Neuro Extensive - Mental Status: Alert, Oriented x3, Normal Mood/Affect, Normal Cognition Neuro Extensive - Motor, Sensory, Reflexes: CN II-XII Intact Psychiatric: Alert, Normal Affect, Normal Mood - Patient Data Lab Results Last 24 hrs: Laboratory Results - last 24 hr 05/10/17 05/10/17 05/10/17 Range/Units 09:00 09:00 09:00 WBC 4.87 (4.0-11.0) K/uL RBC 4.89 (4.30-5.90) M/uL Hgb 14.6 (12.0-16.0) g/dL Hct 42.5 (36.0-46.0) % MCV 86.9 (80.0-98.0) fL MCH 29.9 (27.0-32.0) pg MCHC 34.4 (31.0-37.0) g/dL RDW Std Deviation 41.6 (28.0-62.0) fl RDW Coeff of Jose Luis 13 (11.0-15.0) % Plt Count 194 (150-400) K/uL MPV 9.30 (7.40-12.00) fL Neut % (Auto) 50.8 (48.0-80.0) % Lymph % (Auto) 35.9 (16.0-40.0) % [place] % (Auto) 7.6 (0.0-15.0) % Eos % (Auto) 4.9 (0.0-7.0) % Baso % (Auto) 0.8 (0.0-1.5) % Neut # (Auto) 2.5 (1.4-5.7) K/uL Lymph # (Auto) 1.8 (0.6-2.4) K/uL [place] # (Auto) 0.4 (0.0-0.8) K/uL Eos # (Auto) 0.2 (0.0-0.7) K/uL Baso # (Auto) 0.0 (0.0-0.1) K/uL Nucleated RBC % 0.0 /100WBC Nucleated RBCs # 0 K/uL INR 1.04 Sodium 139 (136-145) mmol/L Potassium 3.9 (3.5-5.1) mmol/L Chloride 105 (98-107) mmol/L Carbon Dioxide 25.9 (21.0-32.0) mmol/L BUN 18 (7.0-18.0) mg/dL Creatinine 0.9 (0.6-1.0) mg/dL Est Cr Clr Drug Dosing 62.55 mL/min Estimated GFR (MDRD) > 60.0 ml/min Glucose 99 (74-106) mg/dL Calcium 9.1 (8.5-10.1) mg/dL Total Bilirubin 0.8 (0.2-1.0) mg/dL AST 14 L (15-37) IU/L ALT 15 (14-63) IU/L Alkaline Phosphatase 82 (46-116) U/L Troponin I < 0.050 (0.000-0.056) ng/mL Total Protein 7.1 (6.4-8.2) g/dL Albumin 3.9 (3.4-5.0) g/dL Globulin 3.2 (2.0-3.5) g/dL Albumin/Globulin Ratio 1.2 L (1.3-2.8) Result Diagrams: 05/10/17 09:00 05/10/17 09:00 *Q Meaningful Use (ADM) - VTE *Q VTE Criteria *Q: - Stroke *Q Stroke Criteria *Q: - AMI *Q AMI Criteria *Q: - Problem List (1) Atypical chest pain SNOMED Code(s): 870375784 ICD Code: R07.89 - OTHER CHEST PAIN Status: Acute Priority: High Current Visit: Yes (2) Anxiety and depression SNOMED Code(s): 669589811 ICD Code: F41.8 - OTHER SPECIFIED ANXIETY DISORDERS Status: Chronic Priority: Medium Current Visit: Yes Problem List Initiated/Reviewed/Updated: Yes Orders Last 24hrs: Active Orders 24 hr Category Date Time Status Patient Status [ADT] Stat ADT 05/10/17 10:25 Active Cardiac Monitoring [RC] . DIRECTED Care 05/10/17 08:58 Active EKG Documentation Completion [RC] STAT Care 05/10/17 08:58 Active Oxygen Therapy, ED [RC] ASDIRECTED Care 05/10/17 08:58 Active Chest 1V Frontal [CR] Stat Exams 05/10/17 08:59 Taken Sodium Chloride 0.9% [Normal Saline] 1,000 ml Med 05/10/17 09:00 Active IV STAT Sodium Chloride 0.9% [Saline Flush] Med 05/10/17 08:59 Active 10 ml FLUSH ASDIRECTED PRN Sodium Chloride 0.9% [Saline Flush] Med 05/10/17 08:59 Active 2.5 ml FLUSH ASDIRECTED PRN Saline Lock Insert [OM.PC] Stat Oth 05/10/17 08:58 Ordered Medication Orders Sodium Chloride (Normal Saline) 1,000 mls @ 125 mls/hr IV STAT JOSE L Last Admin: 05/10/17 09:14 Dose: 125 mls/hr Sodium Chloride (Saline Flush) 10 ml FLUSH ASDIRECTED PRN PRN Reason: Keep Vein Open Sodium Chloride (Saline Flush) 2.5 ml FLUSH ASDIRECTED PRN PRN Reason: Keep Vein Open Assessment/Plan Comment:: 47-year-old female admitted 05/10/17 for atypical chest pain with past medical history of depression/anxiety. Atypical chest pain: Patient placed on telemetry, trend troponins. This sounds more musculoskeletal however secondary to story will observe overnight. She has no previous history of cardiopulmonary disease. I suspect her GI symptoms are related to a viral gastroenteritis. We will get stool studies and place patient on Protonix. No history of GERD. Depression/anxiety: Patient states it has been currently under control and she has not been using any of her lorazepam. Will continue home meds and monitor. VTE: SCD, Lovenox. Dispo: 1-2 days pending.
[2017-05-10] MEDS ORDERED: Morphine 2 MG/ML Syringe IVPUSH PRN (12:19)
[2017-05-10] MEDS ORDERED: Ondansetron 4 MG/2 ML SDV IVPUSH PRN (12:19)
[2017-05-10] MEDS ORDERED: oxyCODONE 5 MG Tab PO PRN (12:19)
[2017-05-10] MEDS ORDERED: Ondansetron 4 MG Tab.DIS PO PRN (12:19)
[2017-05-10] MEDS: Enoxaparin 40 MG/0.4 ML Syringe SUBCUT SCH (13:02)
[2017-05-10] MEDS: Pantoprazole 40 MG Vial IVPUSH SCH (13:04)
[2017-05-10] MEDS: Acetaminophen 325 MG Tab PO PRN (13:58)
[2017-05-10] MEDS ORDERED: HYDROmorphone 1 MG/ML Syringe IM STA (20:23)
[2017-05-11 06:32] LABS: CHLORIDE,CL 106 mmol/L (98-107); SODIUM,NA 139 mmol/L (136-145)
[2017-05-11] MEDS: Acetaminophen 325 MG Tab PO PRN (08:27)
[2017-05-11] MEDS: Pantoprazole 40 MG Vial IVPUSH SCH (08:27)
[2017-05-11] MEDS ORDERED: Sertraline 50 MG Tab PO SCH (09:00)
[2017-05-11] MEDS ORDERED: Ketorolac 30 MG/ML SDV IVPUSH ONE (09:08)
[2017-05-11] MEDS ORDERED: Metoclopramide 10 MG/2 ML SDV IVPUSH ONE (09:08)
[2017-05-11] MEDS ORDERED: diphenhydrAMINE 50 MG/ML SDV IVPUSH ONE (09:08)
--- NOTE | 2017-05-11 10:49 | PCM.DCSUM1 ---
Discharge Summary - Hospital Course Brief History: 47-year-old female presenting to the emergency department with chief complaint of chest pain starting last evening at 8 PM with past medical history of depression and anxiety. Patient states that around 8 PM she started to have some sudden sharp stabbing pain in her left chest radiating into her left arm as well as neck and jaw. States that she did go to bed at this time but awoke with similar pain 6 times throughout the night. She woke up around 8 AM with the pain and went to the bathroom with nausea and vomiting and felt like she may have passed out. She had 2 episodes of vomiting. She denies any associated diaphoresis or shortness of breath. She does admit to having 2 episodes of diarrhea last evening and general upset stomach. She also reports a headache that started 2 days ago. Patient has history of anxiety/depression and takes Zoloft for this. She does have a prescription for lorazepam but states she has not taken it in quite some time as she does not feel anxious. Emergency department: CBC, INR, CMP, chest x-ray all unremarkable. Vital signs stable, troponin negative, EKG shows no sign of acute ischemic changes. There was some anterior T-wave inversions with normal sinus rhythm no comparison EKG. Primary care physician Dr. Belle, nurse practitioner Cj Rodrigez. Patient admitted for atypical chest pain. - Discharge Data Discharge Date: 05/11/17 Discharge Disposition: Home, Self-Care 01 Condition: Stable - Patient Instructions Diet: Regular Diet as Tolerated Activity: As Tolerated Driving: Do Not Drive (today) Showering/Bathing: June Shower Notify Provider of: Fever, Increased Pain, Swelling and Redness, Drainage, Nausea and/or Vomiting - Discharge Plan Home Medications: Home Meds LORazepam 1 mg PO DAILY 05/10/17 [History] Sertraline [Zoloft] 50 mg PO DAILY 05/10/17 [History] Acetaminophen [Tylenol] 650 mg PO Q4H PRN tablet 05/11/17 [Rx] Referrals: PCP,Unknown [Primary Care Provider] - (follow up with PCP in 1 week Follow up with Dr wise for migraines first available. ) - Discharge Summary/Plan Comment DC Time >30 min.: No Discharge Summary/Plan Comment: Discharge Diagnoses: Atypical chest pain-resolved likely musculoskeletal Migraine Latonya was admitted and monitor for atypical chest pain, ACS ruled out, Telemetry negative and troponins all negative as well. Pain likely more musculoskeletal in nature. This morning she did have a migraine and was treated with Toradol, Benadryl and Reglan. This afternoon she is feeling much better. She reports starting to have more migraines, offered referal to Neurology which she accepted, will make this follow up for first available. She will also see PCP in 1 week to follow up. She is to return to ED or clinic if concerns should arise. She is to restart all home medications. - General Info Date of Service: 05/11/17 Admission Dx/Problem (Free Text: Admission Diagnosis/Problem Admission Diagnosis/Problem Atypical Chest pain Subjective Update: Feeling better today, but has migraine headache. Throbbong pain to all over head. No chest pain SOB or N/V and no diarrhea. Second rounds after toradol, benadryl and reglan, she is feeling much better, no headache and is eager for discharge home. Functional Status: Reports: Pain Controlled, Tolerating Diet, Ambulating - Review of Systems General: Reports: No Symptoms. Denies: Fever, Weakness, Fatigue HEENT: Reports: No Symptoms, Headaches (No longer having this afternoon.). Denies: Sore Throat, Rhinitis, Visual Changes Pulmonary: Reports: No Symptoms. Denies: Shortness of Breath, Cough, Sputum Cardiovascular: Reports: No Symptoms. Denies: Chest Pain, Palpitations, Lightheadedness Gastrointestinal: Reports: No Symptoms. Denies: Abdominal Pain, Nausea, Vomiting Genitourinary: Reports: No Symptoms. Denies: Dysuria, Frequency, Burning 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: Reports: No Symptoms. Denies: Neck Pain Neurological: Reports: No Symptoms. Denies: Confusion Psychiatric: Reports: No Symptoms. Denies: Confusion - Patient Data Vitals - Most Recent: Last Vital Signs Temp 98.6 F 05/11/17 08:00 Pulse 61 05/11/17 08:00 Resp 18 05/11/17 08:00 BP 109/69 05/11/17 08:00 Pulse Ox 99 05/11/17 08:00 Weight - Most Recent: 74.871 kg I&O - Last 24 hours: Intake & Output 05/10/17 05/11/17 05/11/17 22:59 06:59 14:59 Intake Total 874 1060 Output Total 300 700 Balance 574 360 Lab Results - Last 24 hrs: Laboratory Results - last 24 hr 05/10/17 05/10/17 05/11/17 Range/Units 14:58 21:04 05:35 WBC 5.15 (4.0-11.0) K/uL RBC 4.36 (4.30-5.90) M/uL Hgb 12.9 (12.0-16.0) g/dL Hct 38.1 (36.0-46.0) % MCV 87.4 (80.0-98.0) fL MCH 29.6 (27.0-32.0) pg MCHC 33.9 (31.0-37.0) g/dL RDW Std Deviation 41.7 (28.0-62.0) fl RDW Coeff of Jose Luis 13 (11.0-15.0) % Plt Count 164 (150-400) K/uL MPV 9.40 (7.40-12.00) fL Neut % (Auto) 43.5 L (48.0-80.0) % Lymph % (Auto) 41.9 H (16.0-40.0) % Sequoyah % (Auto) 8.0 (0.0-15.0) % Eos % (Auto) 6.0 (0.0-7.0) % Baso % (Auto) 0.6 (0.0-1.5) % Neut # (Auto) 2.2 (1.4-5.7) K/uL Lymph # (Auto) 2.2 (0.6-2.4) K/uL Sequoyah # (Auto) 0.4 (0.0-0.8) K/uL Eos # (Auto) 0.3 (0.0-0.7) K/uL Baso # (Auto) 0.0 (0.0-0.1) K/uL Nucleated RBC % 0.0 /100WBC Nucleated RBCs # 0 K/uL Sodium (136-145) mmol/L Potassium (3.5-5.1) mmol/L Chloride (98-107) mmol/L Carbon Dioxide (21.0-32.0) mmol/L BUN (7.0-18.0) mg/dL Creatinine (0.6-1.0) mg/dL Est Cr Clr Drug Dosing mL/min Estimated GFR (MDRD) ml/min Glucose (74-106) mg/dL Calcium (8.5-10.1) mg/dL Magnesium (1.5-2.0) mg/dL Troponin I < 0.050 < 0.050 (0.000-0.056) ng/mL 05/11/17 Range/Units 05:35 WBC (4.0-11.0) K/uL RBC (4.30-5.90) M/uL Hgb (12.0-16.0) g/dL Hct (36.0-46.0) % MCV (80.0-98.0) fL MCH (27.0-32.0) pg MCHC (31.0-37.0) g/dL RDW Std Deviation (28.0-62.0) fl RDW Coeff of Jose Luis (11.0-15.0) % Plt Count (150-400) K/uL MPV (7.40-12.00) fL Neut % (Auto) (48.0-80.0) % Lymph % (Auto) (16.0-40.0) % Sequoyah % (Auto) (0.0-15.0) % Eos % (Auto) (0.0-7.0) % Baso % (Auto) (0.0-1.5) % Neut # (Auto) (1.4-5.7) K/uL Lymph # (Auto) (0.6-2.4) K/uL Sequoyah # (Auto) (0.0-0.8) K/uL Eos # (Auto) (0.0-0.7) K/uL Baso # (Auto) (0.0-0.1) K/uL Nucleated RBC % /100WBC Nucleated RBCs # K/uL Sodium 139 (136-145) mmol/L Potassium 4.1 (3.5-5.1) mmol/L Chloride 106 (98-107) mmol/L Carbon Dioxide 24.8 (21.0-32.0) mmol/L BUN 19 H (7.0-18.0) mg/dL Creatinine 0.8 (0.6-1.0) mg/dL Est Cr Clr Drug Dosing 70.37 mL/min Estimated GFR (MDRD) > 60.0 ml/min Glucose 92 (74-106) mg/dL Calcium 8.8 (8.5-10.1) mg/dL Magnesium 1.6 (1.5-2.0) mg/dL Troponin I (0.000-0.056) ng/mL Med Orders - Current: Current Medications Acetaminophen (Tylenol) 650 mg PO Q4H PRN PRN Reason: Pain (Mild 1-3)/fever Last Admin: 05/11/17 08:27 Dose: 650 mg Enoxaparin Sodium (Lovenox) 40 mg SUBCUT Q24H [facility] Last Admin: 05/10/17 13:02 Dose: 40 mg Morphine Sulfate (Morphine) 2 mg IVPUSH Q2H PRN PRN Reason: Pain (severe 7-10) Last Admin: 05/10/17 12:59 Dose: 2 mg Ondansetron HCl (Zofran Odt) 4 mg PO Q4H PRN PRN Reason: nausea, able to take PO Last Admin: 05/11/17 07:36 Dose: 4 mg Ondansetron HCl (Zofran) 4 mg IVPUSH Q4H PRN PRN Reason: Nausea Oxycodone HCl (Oxycodone) 5 mg PO Q4H PRN PRN Reason: Pain (moderate 4-6) Last Admin: 05/10/17 16:43 Dose: 5 mg Pantoprazole Sodium (Protonix Iv) 40 mg IVPUSH DAILY [facility] Last Admin: 05/11/17 08:27 Dose: 40 mg Sertraline HCl (Zoloft) 50 mg PO DAILY [facility] Last Admin: 05/11/17 08:27 Dose: 50 mg Sodium Chloride (Saline Flush) 10 ml FLUSH ASDIRECTED PRN PRN Reason: Keep Vein Open Sodium Chloride (Saline Flush) 2.5 ml FLUSH ASDIRECTED PRN PRN Reason: Keep Vein Open Discontinued Medications Aspirin (Aspirin) 324 mg PO ONETIME ONE Stop: 05/10/17 09:00 Last Admin: 05/10/17 09:11 Dose: 324 mg Diphenhydramine HCl (Benadryl) 25 mg IVPUSH ONETIME ONE Stop: 05/11/17 09:09 Last Admin: 05/11/17 09:19 Dose: 25 mg Hydromorphone HCl (Dilaudid) 1 mg IM ONETIME STA Stop: 05/10/17 20:24 Last Admin: 05/10/17 20:47 Dose: 1 mg Sodium Chloride (Normal Saline) 1,000 mls @ 125 mls/hr IV STAT JOSE L Last Admin: 05/10/17 09:14 Dose: 125 mls/hr Ketorolac Tromethamine (Toradol) 30 mg IVPUSH ONETIME ONE Stop: 05/11/17 09:09 Last Admin: 05/11/17 09:19 Dose: 30 mg Metoclopramide HCl (Reglan) 10 mg IVPUSH ONETIME ONE Stop: 05/11/17 09:09 Last Admin: 05/11/17 09:19 Dose: 10 mg Nitroglycerin (Nitro-Bid 2%) 1 gm TOP ONETIME ONE Stop: 05/10/17 09:02 Last Admin: 05/10/17 09:12 Dose: 1 gm - Exam General: Reports: Alert, Oriented, Cooperative, No Acute Distress Neck: Reports: Supple Lungs: Reports: Clear to Auscultation, Normal Respiratory Effort Cardiovascular: Reports: Regular Rate, Regular Rhythm GI/Abdominal Exam: Normal Bowel Sounds, Soft, Non-Tender, No Organomegaly, No Distention, No Abnormal Bruit, No Mass, Pelvis Stable Neurological: Reports: No New Focal Deficit Psy/Mental Status: Reports: Alert, Normal Affect, Normal Mood *Q Meaningful Use (DIS) - VTE *Q VTE Criteria *Q: - Stroke *Q Stroke Criteria *Q: - AMI *Q AMI Criteria *Q:
[2017-05-11] MEDS: Enoxaparin 40 MG/0.4 ML Syringe SUBCUT SCH (13:50)
[2017-05-11 14:38] VITALS: BP 102/68
--- NOTE | 2017-05-11 16:41 | CR ---
EXAM DATE: 05/10/17 PATIENT'S AGE: 47 Patient: LYNETTE MATHIS Facility: [place], [place] Site . Site : [id number] Study: XRay Chest [id number]/18/2018 9:18:10 AM Ordering Physician: Zuly Ibarra Final Report: INDICATION: Chest pain. COMPARISON: 01/06/2017. FINDINGS: A portable AP view of the chest was obtained. The cardiac silhouette and pulmonary vasculature are within normal limits. The lungs are clear bilaterally. IMPRESSION: No evidence of acute pulmonary disease. Dictated by Ramy Spangler MD @ 05/10/2017 9:21:13 AM Dictated by: Ramy Spangler MD @ 05/10/2017 09:21:34 (Electronic Signature) Report Signed by Proxy. [facility] CENTER[facility]oe
== END 2017-05-11 16:00 | disposition home or self-care (01) ==
LOC: MW.ED 08:55 → MW.MS 10:32
PROVIDERS: ADMIT Family Medicine; ATTEND Family Medicine
DX: R07.89 Other chest pain (principal); G43.909 Migraine, unspecified, not intractable, without status migrainosus; F41.8 Other specified anxiety disorders; Z79.899 Other long term (current) drug therapy; Z88.1 Allergy status to other antibiotic agents; Z87.891 Personal history of nicotine dependence
CPT/HCPCS: 36415; 71045; 80048; 80053; 83735; 84484; 85025; 85610; 93005; 96360; 96361; 99285; A9270; C9113; J1170; J1200; J1650; J1885; J2270; J2765; J7040; 96372; 96374; 96375; 96376; 99283; G0378

== ENCOUNTER 2019-05-19 06:23 | Day surgery (SDC) | payer BC ==
[~2019-05-19 06:23] MED LIST: Lactated Ringers 1,000 ML IV SCH; Sodium Chloride 0.9% 10 ML SDV IV PRN; Sodium Chloride 0.9% 10 ML Syringe FLUSH PRN; Sodium Chloride 0.9% 2.5 ML Syringe FLUSH PRN; ceFAZolin 2 GM in Premix Bag 1 BAG IV ONE
[2019-05-19] MEDS ORDERED: Midazolam 1 MG/ML 2 ML SDV ONE (07:12)
[2019-05-19] MEDS ORDERED: Propofol 200 MG/20 ML SDV ONE (07:12)
[2019-05-19] MEDS ORDERED: fentaNYL 250 MCG/5 ML SDV ONE ×2 (07:12→09:11)
[2019-05-19] MEDS ORDERED: Rocuronium 100 MG/10 ML Syringe ONE (07:15)
[2019-05-19] MEDS ORDERED: Ondansetron 4 MG/2 ML SDV ONE (07:15)
[2019-05-19] MEDS ORDERED: Ketorolac 30 MG/ML SDV ONE (07:15)
[2019-05-19] MEDS ORDERED: Lidocaine 2% 5 ML SDV ONE (07:15)
[2019-05-19] MEDS ORDERED: Glycopyrrolate 0.2 MG/ML SDV ONE (07:15)
[2019-05-19] MEDS ORDERED: Sugammadex Sodium 200 MG/2 ML VIAL ONE (07:18)
[2019-05-19] MEDS ORDERED: Bupivacaine 0.5% 30 ML SDV ONE (07:27)
[2019-05-19] MEDS ORDERED: ceFAZolin 1 GM Vial ONE (07:42)
[2019-05-19] MEDS ORDERED: Sodium Chloride 0.9% 20 ML ONE (07:42)
--- NOTE | 2019-05-19 07:52 | PCM.PREANE ---
Preanesthetic Assessment - Anesthesia/Transfusion/Family Hx Anesthesia History: Prior Anesthesia Without Reaction Other Type of Anesthesia Reaction Comment: pt adopted, unsure of family hx Transfusion History: No Prior Transfusion(s) - Review of Systems General: No Symptoms Pulmonary: No Symptoms Cardiovascular: No Symptoms Gastrointestinal: No Symptoms Neurological: No Symptoms Other: Reports: None - Physical Assessment NPO Status Date: 05/18/19 NPO Status Time: 22:00 Vital Signs: Last Vital Signs Temp 36.4 C 05/19/19 07:00 Pulse 68 05/19/19 07:00 Resp 16 05/19/19 07:00 BP 102/64 05/19/19 07:00 Pulse Ox 96 05/19/19 07:00 Height: 1.6 m Weight: 78.018 kg ASA Class: 2 Mental Status: Alert & Oriented x3 Airway Class: Mallampati = 2 Dentition: Reports: Dentures Thyro-Mental Finger Breadths: 3 Mouth Opening Finger Breadths: 3 ROM/Head Extension: Full Lungs: Clear to Auscultation, Normal Respiratory Effort Cardiovascular: Regular Rate, Regular Rhythm - Allergies Allergies/Adverse Reactions: Allergies Allergy/AdvReac Type Severity Reaction Status Date / Time levofloxacin [From Levaquin] Allergy Tachycardia Verified 05/16/19 13:32 Tetracyclines Allergy Hives Verified 05/16/19 13:32 - Acknowledgements Anesthesia Type Planned: General Anesthesia Pt an Appropriate Candidate for the Planned Anesthesia: Yes Alternatives and Risks of Anesthesia Discussed w Pt/Guardian: Yes Pt/Guardian Understands and Agrees with Anesthesia Plan: Yes PreAnesthesia Questionnaire - Past Health History Medical/Surgical History: Denies Medical/Surgical History HEENT History: Reports: Other (See Below) Other HEENT History: Poor hearing on Right Cardiovascular History: Reports: Arrhythmia Other Cardiovascular History: hx of palpitations, "heart races at times" Respiratory History: Reports: None Gastrointestinal History: Reports: Cholelithiasis Genitourinary History: Reports: None GALLERY ASSISTANT History: Reports: 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 History: Reports: Back Pain, Chronic, Other (See Below) Other 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 History: hx: fx clavicle, DDD Neurological History: Reports: None Psychiatric History: Reports: Anxiety, Depression Endocrine/Metabolic History: Reports: Hypothyroidism Other Endocrine/Metabolic History: recent diagnosis of hypothyroidism, started on medication therapy about 2 weeks ago. Hematologic History: Reports: None Immunologic History: Reports: None Oncologic (Cancer) History: Reports: None Dermatologic History: Reports: None - Infectious Disease History Infectious Disease History: Reports: Chicken Pox, Measles, Mumps Other Infectious Disease History: childhood - Past Surgical History Head Surgeries/Procedures: Reports: None HEENT Surgical History: Reports: None Cardiovascular Surgical History: Reports: None Respiratory Surgical History: Reports: None GI Surgical History: Reports: None Female Surgical History: Reports: Hysterectomy, Salpingo-Oophorectomy, Tubal Ligation Endocrine Surgical History: Reports: None Neurological Surgical History: Reports: Spinal Fusion, Other (See Below) Other Neurological Surgeries/Procedures: Low back fusion L4-5 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 Surgical History: Reports: Arthroscopic Knee, Other (See Below) Other 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 Surgeries/Procedures:: left knee scope x3 Oncologic Surgical History: Reports: None Dermatological Surgical History: Reports: None - SUBSTANCE USE Smoking Status *Q: Former Smoker Tobacco Use Within Last Twelve Months: No - HOME MEDS Home Medications: Home Meds LORazepam 0.5 - 1 tab PO DAILY PRN 05/10/17 [History] FLUoxetine HCl [Prozac] 20 mg PO DAILY 05/16/19 [History] Levothyroxine Sodium [Unithroid] 50 mcg PO DAILY 05/16/19 [History] - CURRENT (IN HOUSE) MEDS Current Meds: Current Medications Lactated Ringer's (Ringers, Lactated) 1,000 mls @ 125 mls/hr IV ASDIRECTED JOSE L Last Admin: 05/19/19 07:20 Dose: 125 mls/hr Sodium Chloride (Saline Flush) 10 ml FLUSH ASDIRECTED PRN PRN Reason: Keep Vein Open Sodium Chloride (Saline Flush) 2.5 ml FLUSH ASDIRECTED PRN PRN Reason: Keep Vein Open Sodium Chloride (Saline Flush) 10 ml FLUSH ASDIRECTED PRN PRN Reason: Keep Vein Open Sodium Chloride (Saline Flush) 2.5 ml FLUSH ASDIRECTED PRN PRN Reason: Keep Vein Open Sodium Chloride (Normal Saline) 10 ml IV ASDIRECTED PRN PRN Reason: IV Use Discontinued Medications Bupivacaine HCl (Marcaine 0.5%) Confirm Administered Dose 30 ml .ROUTE .STK-MED ONE Stop: 05/19/19 07:28 Fentanyl (Sublimaze) Confirm Administered Dose 250 mcg .ROUTE .STK-MED ONE Stop: 05/19/19 07:13 Glycopyrrolate (Robinul) Confirm Administered Dose 0.2 mg .ROUTE .STK-MED ONE Stop: 05/19/19 07:16 Cefazolin Sodium/Dextrose 2 gm (/ Premix) 50 mls @ 100 mls/hr IV ONETIME ONE Stop: 05/18/19 14:50 Ketorolac Tromethamine (Toradol) Confirm Administered Dose 30 mg .ROUTE .STK- MED ONE Stop: 05/19/19 07:16 Lidocaine (Xylocaine-Mpf 2%) Confirm Administered Dose 5 ml .ROUTE .STK-MED ONE Stop: 05/19/19 07:16 Midazolam HCl (Versed 1 Mg/Ml) Confirm Administered Dose 2 mg .ROUTE .STK-MED ONE Stop: 05/19/19 07:13 Ondansetron HCl (Zofran) Confirm Administered Dose 4 mg .ROUTE .STK-MED ONE Stop: 05/19/19 07:16 Propofol (Diprivan 20 Ml) Confirm Administered Dose 200 mg .ROUTE .STK-MED ONE Stop: 05/19/19 07:13 Rocuronium [place] (Zemuron) Confirm Administered Dose 100 mg .ROUTE .STK-MED ONE Stop: 05/19/19 07:16 Sugammadex Sodium (Bridion) Confirm Administered Dose 200 mg .ROUTE .STK-MED ONE Stop: 05/19/19 07:19
[2019-05-19] MEDS ORDERED: Acetaminophen 1,000 MG in Premix Bag 1 BAG IV ONE (08:35)
[2019-05-19] MEDS: fentaNYL 100 MCG/2 ML SDV IVPUSH PRN ×2 (10:22→10:28)
--- NOTE | 2019-05-19 10:28 | PCM.OPNOTE ---
- General Post-Op/Procedure Note Date of Surgery/Procedure: 05/19/19 Operative Procedure(s): Laparoscopic cholecystectomy Findings: Proximal gallbladder with some adhesions especially laterally. Pre Op Diagnosis: Biliary dyskinesia Post-Op Diagnosis: Biliary dyskinesia Anesthesia Technique: General ET Tube Primary Surgeon: Tracy Egan Fluid Replacement, Intraop: 1,250 Output, Urine Amount: 30 EBL in mLs: 10 Condition: Good
--- NOTE | 2019-05-19 10:52 | PCM.POSTAN ---
POST ANESTHESIA ASSESSMENT - MENTAL STATUS Mental Status: Alert, Oriented - VITAL SIGNS Vital Signs: Last Vital Signs Temp 36.4 C 05/19/19 07:00 Pulse 68 05/19/19 07:00 Resp 16 05/19/19 07:00 BP 102/64 05/19/19 07:00 Pulse Ox 96 05/19/19 07:00 - RESPIRATORY Respiratory Status: Respiratory Rate WNL, Airway Patent, O2 Saturation Stable - CARDIOVASCULAR CV Status: Pulse Rate WNL, Blood Pressure Stable - GASTROINTESTINAL GI Status: No Symptoms - PAIN Pain Score: 5 (Pesurgical pain level was frequently at a 6-7/10) - POST OP HYDRATION Hydration Status: Adequate & Stable
[2019-05-19] MEDS ORDERED: fentaNYL 100 MCG/2 ML SDV ONE (10:55)
[2019-05-19] MEDS ORDERED: fentaNYL 100 MCG/2 ML SDV IVPUSH PRN (10:55)
--- NOTE | 2019-05-19 11:17 | OR ---
SURGEON: TRACY DUKES MD DATE OF PROCEDURE: 05/19/2019 PREOPERATIVE DIAGNOSIS: Biliary dyskinesia. POSTOPERATIVE DIAGNOSIS: Biliary dyskinesia. PROCEDURE PERFORMED: Laparoscopic cholecystectomy. PRIMARY SURGEON: Tracy Dukes MD ANESTHESIA: General endotracheal anesthesia. FLUIDS: 1250 mL crystalloid. ESTIMATED BLOOD LOSS: 10 mL. URINE OUTPUT: 30 mL. FINDINGS: Normal-appearing gallbladder, other then some adhesions to the surrounding omentum and some denser adhesions proximally along the infundibulum. COMPLICATIONS: None. INDICATIONS: The patient is a 49-year-old female who presented to my clinic for a screening colonoscopy. However, upon further discussion, the patient expressed concern over epigastric and right upper quadrant abdominal pain, especially after greasy foods. A right upper quadrant ultrasound was negative. A HIDA scan showed an ejection fraction of 90%. When the patient was given cholecystokinin, her symptoms were replicated perfectly. Since then, she has been miserable and all foods have been bothering her. The patient and I had a discussion. Likely, she has biliary hyperkinesia, which is a form a biliary dyskinesia, causing her symptoms. The decision was made to proceed with a laparoscopic, possible open, cholecystectomy. We discussed in length the procedure; expected perioperative course; and risks. The patient verbalized understanding and wishes to proceed. PROCEDURE IN DETAIL: The patient was brought into the OR and placed on the OR table in supine position. A time-out was completed verifying the patient's name, age, date of , allergies, and procedure to be performed. General endotracheal anesthesia was induced. The left arm was tucked to the patient's side and a Do catheter placed. The abdomen was prepped and draped in usual standard fashion. I anesthetized the infraumbilical fold with 0.5% Marcaine plain. An 11 blade was used to make an incision along this fold. Cautery was used to dissect down to the level of the subcutaneous fat. I then bluntly dissected down to the fascia. The fascia was elevated with Satish's and incised sharply with curved Urena scissors. I identified the peritoneum. This was elevated with hemostats and incised sharply again. Entering into the abdomen, it was palpated digitally. Stay sutures were placed on either side using 0 Vicryl sutures. A 12-mm Geo trocar was placed in the abdomen and it was insufflated with carbon dioxide. A 5-mm 30-degree scope was inserted, and I inspected the area underneath my initial trocar placement. No damage to surrounding structures was noted. The patient was then placed into reverse Trendelenburg position and air- planed slightly to the left. 5 mm trocars were placed under direct visualization in the following locations; one in the epigastric area, one in the right flank, and one 2 fingerbreadths below the right subcostal margin in the midclavicular line. The dome of the gallbladder was grasped with an atraumatic grasper and elevated. There were omental adhesions along the body of the gallbladder. These were taken down with hook cautery and blunt dissection. Once these were cleared away, I then was able to identify my infundibulum. Using a combination of blunt dissection and hook cautery, I was able to clear away the adhesions and peritoneal attachments around the cystic duct and artery. I identified the node of Calot. Along the lateral edge of the gallbladder, there were dense adhesions proximally. These were carefully taken down with meticulous dissection. Once I had completely cleared away my cystic duct and artery, I continued my dissection up the cystic plate. Once I was assured of my anatomy, I doubly clipped and ligated my cystic artery. I triply clipped and ligated my cystic duct. There was a very small arterial branch, which was identified along the cystic plate on the lateral side. This was doubly clipped and ligated as close to the gallbladder as I could get. I then carefully dissected the gallbladder off the remainder of the cystic plate using hook cautery. The gallbladder was then placed in an Endo Catch bag and removed through the infraumbilical port site. I then took Geo trocar back in and inspected my operative field. Where the dense adhesions were taken down previously, there was a mild amount of oozing. There was no specific area of arterial bleeding or one point where the bleeding was coming from. I placed Surgicel within the surgical bed and monitored the area closely for bleeding over the next 5 minutes. The Surgicel remained dry. Once I was assured of my hemostasis, I removed my 5 mm trocars under direct visualization. The abdomen was allowed to desufflate. The Geo trocar was removed as well. I then closed the fascia at the infraumbilical port site with interrupted 0 Vicryl sutures. The subcutaneous fat layer was closed with interrupted 3-0 Vicryl sutures. The skin was closed with a running 4-0 Monocryl stitch. The 5 mm trocar sites were closed with interrupted 4-0 Monocryl sutures. Steri-Strips and sterile dressings were applied. All counts were complete and correct at the end of the case. The patient was then transferred to the PACU in stable condition. HENRY WADE /[id number] MTDD
[2019-05-19] MEDS ORDERED: HYDROmorphone 1 MG/ML Syringe IVPUSH ONE (11:51)
[2019-05-19] MEDS ORDERED: oxyCODONE 5 MG Tab PO ONE (11:54)
[2019-05-19] MEDS ORDERED: HYDROmorphone 2 MG/ML Syringe IVPUSH ONE (12:15)
[2019-05-19] MEDS ORDERED: Cyclobenzaprine 10 MG Tab PO ONE (12:25)
--- NOTE | 2019-05-19 15:59 | PCM48HPAN ---
Post Anesthesia Note - EVALUATION WITHIN 48HRS OF ANESTHETIC Vital Signs in Normal Range: Yes Patient Participated in Evaluation: Yes Respiratory Function Stable: Yes Airway Patent: Yes Cardiovascular Function Stable: Yes Hydration Status Stable: Yes Pain Control Satisfactory: Yes Nausea and Vomiting Control Satisfactory: Yes Mental Status Recovered: Yes Vital Signs: Last Vital Signs Temp 36.2 C 05/19/19 11:10 Pulse 76 05/19/19 12:15 Resp 14 05/19/19 12:15 BP 114/60 05/19/19 12:15 Pulse Ox 100 05/19/19 12:15 - COMMENTS/OBSERVATIONS Free Text/Narrative:: no anesthesia problems
[2019-05-19 17:23] VITALS: BP 118/66; PULSE 72
== END 2019-05-19 16:45 | disposition home or self-care (01) ==
LOC: MW.SDS 06:23
PROVIDERS: ATTEND Surgery
DX: K81.1 Chronic cholecystitis (principal); K82.8 Other specified diseases of gallbladder; F32.9 Major depressive disorder, single episode, unspecified; E66.3 Overweight; E03.9 Hypothyroidism, unspecified; Z88.8 Allergy status to other drugs, medicaments and biological substances; Z79.899 Other long term (current) drug therapy; Z87.891 Personal history of nicotine dependence; Z68.30 Body mass index [BMI] 30.0-30.9, adult
CPT/HCPCS: 47562; A9270; J0131; J0690; J1170; J2001; J2250; J2405; J2704; J3010; J3490; J7120; 00790; 88304; J1885